=== PATIENT | female | born 1985 | race Hispanic/Latino ===

== ENCOUNTER 2017-05-31 05:09 | Emergency (ER) | payer OTHER ==
[2017-05-31 05:26] VITALS: RESP 16
--- NOTE | 2017-05-31 06:36 | ED PDOC ---
HPI: Abdomen Time Seen by Provider: 05/31/17 05:21 Chief Complaint (Nursing): Abdominal Pain Chief Complaint (Provider): Abdominal Pain History Per: Patient History/Exam Limitations: no limitations Onset/Duration Of Symptoms: Hrs (x12 hours ago) Current Symptoms Are (Timing): Still Present Location Of Pain/Discomfort: RLQ Associated Symptoms: Nausea, Vomiting. denies: Diarrhea, Constipation, Urinary Symptoms Additional Complaint(s): 31 year old female presents to ED with complaints of sharp, non-radiating RLQ pain x12 hours, is at 4 weeks , and has no history of STDs. (+) nausea and vomiting x10 episodes (non-bloody, non-bilious). (-) diarrhea, constipation, urinary symptoms, or vaginal bleeding/discharge. Patient states she has a toddler at home who she lifts up. Also reports she was seeing a fertility specialist at [facility] but notes she was able to conceive naturally for this current . OB: Dr. Baird Abnormal Vaginal Bleeding: No : 4 Para: 1 Past Medical History Reviewed: Historical Data, Nursing Documentation, Vital Signs Vital Signs: Last Vital Signs Temp 98.1 F 05/31/17 05:23 Pulse 86 05/31/17 05:23 Resp 16 05/31/17 05:23 BP 144/93 H 05/31/17 05:23 Pulse Ox 100 05/31/17 07:27 - Medical History PMH: Denies: Sexually Transmitted Disease - Family History Family History: States: Unknown Family Hx - Living Arrangements Living Arrangements: With Family - Allergies Allergies/Adverse Reactions: Allergies Allergy/AdvReac Type Severity Reaction Status Date / Time latex Allergy RASH Verified 05/31/17 05:23 Review of Systems ROS Statement: Except As Marked, All Systems Reviewed And Found Negative Gastrointestinal: Positive for: Nausea, Vomiting, Abdominal Pain. Negative for : Diarrhea, Constipation Genitourinary Female: Negative for: Dysuria, Frequency, Incontinence, Hematuria , Vaginal Discharge, Vaginal Bleeding Physical Exam - Reviewed Nursing Documentation Reviewed: Yes Vital Signs Reviewed: Yes - Physical Exam Appears: Positive for: Non-toxic, No Acute Distress Skin: Positive for: Normal Color, Warm, Dry Eye Exam: Positive for: Normal appearance Cardiovascular/Chest: Positive for: Regular Rate, Rhythm. Negative for: Murmur Respiratory: Positive for: Normal Breath Sounds. Negative for: Respiratory Distress Gastrointestinal/Abdominal: Positive for: Soft, Tenderness (RLQ/suprapubic tenderness). Negative for: Normal Exam Extremity: Positive for: Normal ROM. Negative for: Deformity Neurologic/Psych: Positive for: Alert, Oriented. Negative for: Motor/Sensory Deficits - Laboratory Results Result Diagrams: 05/31/17 06:39 05/31/17 06:39 - ECG O2 Sat by Pulse Oximetry: 100 (RA) Pulse Ox Interpretation: Normal Medical Decision Making Medical Decision Makin Initial impression: r/o ectopic v round ligament pain. less likely appendicitis Initial plan: * T&S * BETA HCG * Labs * UPreg * Reglan 10mg IVPB * UA * US OB TRANSVAGINAL * Re-eval 0700 Beta in 80s. Will require US. Patient signed over to Dr. Wheatley pending results and re-eval. Scribe Attestation: Documented by Jaclyn Trinidad acting as a scribe for Jovany Fischer MD. Scribe Attestation: All medical record entries made by the Scribe were at my direction and personally dictated by me. I have reviewed the chart and agree that the record accurately reflects my personal performance of the history, physical exam, medical decision making, and the department course for this patient. I have also personally directed, reviewed, and agree with the discharge instructions and disposition. Disposition - Clinical Impression Clinical Impression: Abdominal pain during - Patient ED Disposition Is Patient to be Admitted: Transfer of Care - Disposition Referrals: Jose Martin Baird DO [Primary Care Provider] - Disposition Time: 07:00 Condition: STABLE Forms: [employer] (Luxembourger) Patient Signed Over To: Thai Wheatley Handoff Comments: pending U/S and re-eval
[2017-05-31 06:46] LABS: BASO % 0.4 % (0.0-2.0); EOS % 0.3 % (0.0-4.0); HEMOGLOBIN 13.6 g/dL (12.0-16.0); LYMPH # 1.3 K/uL (1.0-4.3); MEAN CELL VOLUME 95.3 fl (81.0-99.0); MEAN CORPUSCULAR HEMOGLOBIN 33.7 pg (27.0-31.0); MEAN CORPUSCULAR HGB CONC 35.3 g/dL (33.0-37.0); MONO # 0.3 K/uL (0.0-0.8); MONO % 5.7 % (0.0-10.0); NEUT % 70.6 % (50.0-75.0); NRBC % 0.1 % (0.0-0.0); RBC 4.05 Mil/uL (3.80-5.20); RED CELL DISTRIBUTION WIDTH 12.6 % (11.5-14.5); WHITE BLOOD COUNT 5.7 K/uL (4.8-10.8)
[2017-05-31 06:52] LABS: SQUAMOUS EPITHIAL < 1 /hpf (0-5); URINE BACTERIA RARE (<OCC); URINE BILIRUBIN NEGATIVE (NEGATIVE); URINE BLOOD NEGATIVE (NEGATIVE); URINE CLARITY SLIGHTY-CLOUDY (Clear); URINE COLOR STRAW (YELLOW); URINE GLUCOSE (UA) NEG (Normal); URINE LEUKOCYTE ESTERASE NEG Leu/uL (Negative); URINE NITRATE NEGATIVE (NEGATIVE); URINE PROTEIN NEGATIVE (NEGATIVE); URINE UROBILINOGEN 0.2-1.0 mg/dL (0.2-1.0)
[2017-05-31 07:03] LABS: ALB/GLOB RATIO 1.3 (1.0-2.1); ALBUMIN 4.6 g/dL (3.5-5.0); ALT/SGPT 29 U/L (9-52); AST/SGOT 28 U/L (14-36); BLOOD UREA NITROGEN 7 mg/dl (7-17); CALCIUM 9.7 mg/dL (8.4-10.2); GFR AFRICAN-AMERICAN > 60; GFR NON-AFRICAN AMERICAN > 60
--- NOTE | 2017-05-31 07:27 | ED PDOC ---
- Laboratory Results Result Diagrams: 05/31/17 06:39 05/31/17 06:39 - ECG O2 Sat by Pulse Oximetry: 100 (RA) Medical Decision Making Medical Decision Making: Time: 07:00 Patient signed out to me by Dr. Fischer pending US. Time: 08:29 TRANSVAGINAL US FINDINGS: UTERUS: Uterus measures 6.1 x 6.7 x 4.7 cm. Retroverted. Normal in size and appearance. No intrauterine gestational sac. CERVIX: Long and closed. No cervical abnormality seen. RIGHT OVARY: Measures 4.5 x 3.1 x 2.2 cm. Nonspecific small echogenic structure within a possible corpus luteum. Normal flow. LEFT OVARY: Measures 2.7 x 1.6 x 1.8 cm. No solid mass. Normal flow. FREE FLUID: Moderate volume simple appearing fluid anterior and posterior to uterus as well as right adnexa. OTHER FINDINGS: None. IMPRESSION: No intrauterine gestational sac. Nonspecific small echogenic structure within a possible right ovarian corpus luteum. Findings may represent early normal/ abnormal with ectopic not excluded. Close clinical follow- up with serial pelvic sonography and serum beta HCG levels is recommended. Time: 09:50 Patient was informed of US report and that she's RH negative, but no bleeding. Advised to followup with OB-ASSOCIATE TEACHER, Dr. Baird, to rule out ectopic in 48 hrs. questions answered. Scribe Attestation: Documented by Jose Shelby, acting as a scribe for Thai Wheatley MD. Provider Scribe Attestation: All medical record entries made by the Scribe were at my direction and personally dictated by me. I have reviewed the chart and agree that the record accurately reflects my personal performance of the history, physical exam, medical decision making, and the department course for this patient. I have also personally directed, reviewed, and agree with the discharge instructions and disposition. Disposition Counseled Patient/Family Regarding: Studies Performed, Diagnosis, Need For Followup - Clinical Impression Clinical Impression: Abdominal pain during - POA Present On Arrival: None - Disposition Referrals: Jose Martin Baird DO [Primary Care Provider] - Disposition: Routine/Home Disposition Time: 09:30 Condition: IMPROVED Additional Instructions: follow up with your primary supervisor meter shop in 2 days for repeat blood work return to the ED with any worsening or concerning symptoms Instructions: Acute Pelvic Pain (DC) Forms: [employer] (Faroese)
--- NOTE | 2017-05-31 08:30 | US ---
PROCEDURE: OB Pelvic Ultrasound HISTORY: R sided abd pain, r/o ectopic LMP: 05/05/2017. Serum beta HCG 83.0 COMPARISON: None available. FINDINGS: UTERUS: Uterus measures 6.1 x 6.7 x 4.7 cm. Retroverted. Normal in size and appearance. No intrauterine gestational sac. CERVIX: Long and closed. No cervical abnormality seen. RIGHT OVARY: Measures 4.5 x 3.1 x 2.2 cm. Nonspecific small echogenic structure within a possible corpus luteum. Normal flow. LEFT OVARY: Measures 2.7 x 1.6 x 1.8 cm. No solid mass. Normal flow. FREE FLUID: Moderate volume simple appearing fluid anterior and posterior to uterus as well as right adnexa. OTHER FINDINGS: None. IMPRESSION: No intrauterine gestational sac. Nonspecific small echogenic structure within a possible right ovarian corpus luteum. Findings may represent early normal/ abnormal with ectopic not excluded. Close clinical follow-up with serial pelvic sonography and serum beta HCG levels is recommended.
[2017-05-31 10:08] VITALS: BP 119/70; PULSE 72; TEMP 97.9
[2017-05-31 10:10] VITALS: O2SAT 100
== END 2017-05-31 10:18 | disposition home or self-care (01) ==
LOC: H.ER 05:09
DX: O26.91 Pregnancy related conditions, unspecified, first trimester (principal); R10.2 Pelvic and perineal pain

== ENCOUNTER 2017-06-02 19:52 | Emergency (ER) | payer OTHER ==
[2017-06-02 21:07] VITALS: BP 153/98; PULSE 93; RESP 16; TEMP 98; O2SAT 100
--- NOTE | 2017-06-02 21:11 | ED PDOC ---
HPI: Abdomen Time Seen by Provider: 06/02/17 21:08 Chief Complaint (Nursing): Abdominal Pain Chief Complaint (Provider): abd pain History Per: Patient Additional Complaint(s): 31-year-old female currently 4 weeks presents to emergency department with right lower quadrant pain 2 days. Patient has also had diarrhea with no nausea or vomiting. No fever or chills. Patient was seen 2 days ago and ultrasound demonstrated no IUP, beta was only 83. Patient states she was seen today by her OB in [facility] and was told that ultrasound still shows no IUP. She returns to ED this evening with persistent right lower quadrant pain and diarrhea. Patient took Tylenol prior to arrival which did not help the pain. 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 PMD: in [facility] Past Medical History Reviewed: Historical Data, Nursing Documentation, Vital Signs Vital Signs: Last Vital Signs Temp 98.0 F 06/02/17 21:03 Pulse 93 H 06/02/17 21:03 Resp 16 06/02/17 21:03 BP 153/98 H 06/02/17 21:03 Pulse Ox 100 06/03/17 01:43 - Medical History PMH: No Chronic Diseases - Surgical History Surgical History: - Family History Family History: States: No Known Family Hx - Living Arrangements Living Arrangements: With Family - Social History Current smoker - smoking cessation education provided: No Alcohol: None Drugs: Denies - Allergies Allergies/Adverse Reactions: Allergies Allergy/AdvReac Type Severity Reaction Status Date / Time latex Allergy RASH Verified 06/02/17 21:03 Review of Systems ROS Statement: Except As Marked, All Systems Reviewed And Found Negative Constitutional: Negative for: Fever Cardiovascular: Negative for: Chest Pain Respiratory: Negative for: Cough Gastrointestinal: Positive for: Abdominal Pain, Diarrhea. Negative for: Nausea , Vomiting Genitourinary Female: Negative for: Dysuria Physical Exam - Reviewed Nursing Documentation Reviewed: Yes Vital Signs Reviewed: Yes - Physical Exam Appears: Positive for: Well, Non-toxic, No Acute Distress Skin: Negative for: Rash Eye Exam: Positive for: Normal appearance Cardiovascular/Chest: Positive for: Regular Rate, Rhythm Respiratory: Positive for: Normal Breath Sounds Gastrointestinal/Abdominal: Positive for: Soft, Tenderness (mild to RLQ). Negative for: Mass, Distended, Guarding, Rebound Back: Negative for: L CVA Tenderness, R CVA Tenderness Extremity: Positive for: Normal ROM Neurologic/Psych: Positive for: Alert, Oriented - Laboratory Results Result Diagrams: 06/02/17 23:22 06/02/17 23:22 Urine POC: Positive Urine dip results: Positive for: Ketones. Negative for: Leukocyte Esterase, Blood, Nitrate, Glucose, Bilirubin, Protein - ECG O2 Sat by Pulse Oximetry: 100 Pulse Ox Interpretation: Normal - Other Rad Abd US X-Ray: Read By Radiologist X-Ray Interpretation: appendix not visualized OB US X-Ray: Read By Radiologist X-Ray Interpretation: no IUP, missed AB vs early vs ectopic Medical Decision Making Medical Decision Makin31 year old female with abd pain PLan: Abd US - assess appendix OB US CBC CMP Beta Urine dip IVF Beta from 05/31/17 - 83 Beta today - 334 12:30 am: Patient aware of US results. Case was d/w Dr. Figueroa OB lease administration analyst who is aware of US and beta and results of same from 05/31/17. No intervention indicated emergently at this time as per Dr. Figueroa. 12:48 am: residential framing carpenter, Dr. Castro at bedside to evaluation patient. States patient is stable for discharge and is aware she can return to ED at any time if acutely worse. Patient agrees with plan and will return to ED if worse. Tylenol dose given prior to discharge. Disposition - Clinical Impression Clinical Impression: Abdominal pain during , Gastroenteritis - Patient ED Disposition Is Patient to be Admitted: No Counseled Patient/Family Regarding: Studies Performed, Diagnosis, Need For Followup - Disposition Referrals: [facility] [Outside] Disposition: Routine/Home Disposition Time: 01:53 Condition: STABLE Additional Instructions: TYLENOL EVERY 4-6 HRS FOR PAIN. RETURN ANY TIME IF WORSE. Instructions: Viral Gastroenteritis, Symptoms Forms: [employer] (Spanish) Results - Lab Results Lab Results: 06/02/17 06/02/17 23:22 23:22 WBC 6.5 RBC 3.91 Hgb 13.1 Hct 37.4 MCV 95.7 MCH 33.5 H MCHC 35.0 RDW 12.4 Plt Count 246 MPV 8.0 Neut % (Auto) 62.5 Lymph % (Auto) 29.0 [place] % (Auto) 7.0 Eos % (Auto) 0.9 Baso % (Auto) 0.6 Neut # (Auto) 4.1 Lymph # (Auto) 1.9 [place] # (Auto) 0.5 Eos # (Auto) 0.1 Baso # (Auto) 0.0 Sodium 140 Potassium 3.7 Chloride 105 Carbon Dioxide 22 Anion Gap 17 BUN 9 Creatinine 0.6 L Est GFR ( Amer) > 60 Est GFR (Non-Af Amer) > 60 Random Glucose 90 Calcium 9.2 Total Bilirubin 0.6 AST 17 ALT 32 Alkaline Phosphatase 38 Total Protein 7.6 Albumin 4.4 Globulin 3.2 Albumin/Globulin Ratio 1.3 Beta HCG, Quant 334.60
[2017-06-02] MEDS ORDERED: Sodium Chloride 0.9% 1,000 ML IV STA (21:50)
--- NOTE | 2017-06-02 23:18 | US ---
EXAM: US , Transvaginal CLINICAL HISTORY: 31 years old, female; Pain; Other: Abd pain; Gestational age or lmp: 05/05/17; Additional info: 4 weeks with abd pain TECHNIQUE: Real-time transvaginal obstetrical ultrasound of the maternal pelvis and a first trimester with image documentation. Transvaginal imaging was used for better evaluation of the fetus and adnexa. COMPARISON: No relevant prior studies available. FINDINGS: Gestation: No intrauterine gestational sac. Uterus/cervix: Retroverted uterus. Endometrium: 1.4 cm in thickness. Closed cervix. Ovaries: Normal ovaries. No adnexal masses. Free fluid: No significant free fluid. IMPRESSION: 1. No intrauterine gestation. DDX: Early IUP, missed , ectopic .
--- NOTE | 2017-06-02 23:19 | US ---
EXAM: US Abdomen Limited, Appendix CLINICAL HISTORY: 31 years old, female; Pain; Abdominal pain; Other: Rlq; ; Additional info: female with rlq pain TECHNIQUE: Real-time ultrasound of the right lower quadrant with image documentation. COMPARISON: No relevant prior studies available. FINDINGS: Appendix: Not visualized. Free fluid: No significant free fluid. IMPRESSION: 1. Nonvisualization of appendix.
[2017-06-02 23:25] LABS: BASO % 0.6 % (0.0-2.0); EOS # 0.1 K/uL (0.0-0.7); EOS % 0.9 % (0.0-4.0); HEMOGLOBIN 13.1 g/dL (12.0-16.0); LYMPH # 1.9 K/uL (1.0-4.3); MEAN CELL VOLUME 95.7 fl (81.0-99.0); MEAN CORPUSCULAR HEMOGLOBIN 33.5 pg (27.0-31.0); MONO # 0.5 K/uL (0.0-0.8); NEUT # 4.1 K/uL (1.8-7.0); NEUT % 62.5 % (50.0-75.0); NRBC % 0.1 % (0.0-0.0); RBC 3.91 Mil/uL (3.80-5.20); RED CELL DISTRIBUTION WIDTH 12.4 % (11.5-14.5); WHITE BLOOD COUNT 6.5 K/uL (4.8-10.8)
[2017-06-02 23:40] LABS: ALB/GLOB RATIO 1.3 (1.0-2.1); ALBUMIN 4.4 g/dL (3.5-5.0); ALT/SGPT 32 U/L (9-52); AST/SGOT 17 U/L (14-36); BLOOD UREA NITROGEN 9 mg/dl (7-17); CALCIUM 9.2 mg/dL (8.4-10.2); GFR AFRICAN-AMERICAN > 60; GFR NON-AFRICAN AMERICAN > 60
--- NOTE | 2017-06-03 01:24 | CP.PCM.CON ---
History of Present Illness - History of Present Illness History of Present Illness: General Surgery Consult Note for Dr. Ortiz This 31F with no PMH and a surgical history of a two years ago presents with two days of abdominal pain. She reports similar pain one month ago when she was diagnosed with a ruptured ovarian cyst however this time the pain is worse. She says that pain is a deep pain in her RLQ. It is worse with meals and is associated with diarrhea and increased flatus. She denies fevers chills chest pain nausea vomiting. She denies any sick contacts. PMH: None PSH: Meds: None All: NKDA Social: Denies Tobacco, ETOH ,Drugs Review of Systems - Review of Systems All systems: reviewed and no additional remarkable complaints except - Constitutional Constitutional: Chills. absent: Anorexia, Fever - Gastrointestinal Gastrointestinal: Abdominal Pain, Diarrhea. absent: Nausea, Vomiting - Genitourinary Genitourinary: absent: Dysuria Past Patient History - Past Social History Smoking Status: Never Smoked - GENITOURINARY/GYNECOLOGICAL Hx Sexually Transmitted Disorders: No - PSYCHIATRIC Hx Substance Use: No - SURGICAL HISTORY Hx Section: Yes - ANESTHESIA Hx Anesthesia: Yes Meds Allergies/Adverse Reactions: Allergies Allergy/AdvReac Type Severity Reaction Status Date / Time latex Allergy RASH Verified 06/02/17 21:03 Physical Exam - Constitutional Appears: Non-toxic, No Acute Distress - Head Exam Head Exam: ATRAUMATIC, NORMOCEPHALIC - Eye Exam Eye Exam: EOMI, Normal appearance - ENT Exam ENT Exam: Mucous Membranes Moist - Respiratory Exam Respiratory Exam: NORMAL BREATHING PATTERN - Cardiovascular Exam Cardiovascular Exam: REGULAR RHYTHM - GI/Abdominal Exam GI & Abdominal Exam: Soft, Tenderness. absent: Distended, Firm, Guarding, Rebound, Rigid - Neurological Exam Neurological exam: Alert, Oriented x3 - Psychiatric Exam Psychiatric exam: Normal Affect, Normal Mood - Skin Skin Exam: Dry, Intact Results - Vital Signs Recent Vital Signs: Last Vital Signs Temp 98.0 F 06/02/17 21:03 Pulse 93 H 06/02/17 21:03 Resp 16 06/02/17 21:03 BP 153/98 H 06/02/17 21:03 Pulse Ox 100 06/03/17 00:49 - Labs Result Diagrams: 06/02/17 23:22 06/02/17 23:22 Labs: Laboratory Results - last 24 hr 03/01/18 03/01/18 23:22 23:22 WBC 6.5 RBC 3.91 Hgb 13.1 Hct 37.4 MCV 95.7 MCH 33.5 H MCHC 35.0 RDW 12.4 Plt Count 246 MPV 8.0 Neut % (Auto) 62.5 Lymph % (Auto) 29.0 [place] % (Auto) 7.0 Eos % (Auto) 0.9 Baso % (Auto) 0.6 Neut # (Auto) 4.1 Lymph # (Auto) 1.9 [place] # (Auto) 0.5 Eos # (Auto) 0.1 Baso # (Auto) 0.0 Sodium 140 Potassium 3.7 Chloride 105 Carbon Dioxide 22 Anion Gap 17 BUN 9 Creatinine 0.6 L Est GFR ( Amer) > 60 Est GFR (Non-Af Amer) > 60 Random Glucose 90 Calcium 9.2 Total Bilirubin 0.6 AST 17 ALT 32 Alkaline Phosphatase 38 Total Protein 7.6 Albumin 4.4 Globulin 3.2 Albumin/Globulin Ratio 1.3 Beta HCG, Quant 334.60 Assessment & Plan - Assessment and Plan (Free Text) Assessment: This is a @4 weeks presenting with RL abdominal pain Abdominal U/S appendix non-visualized Transvaginal Intrauterine non visualized Evaluated by OBGYN outpatient: nothing to do Pt Currently not interested in MRI explained it would be definitive test Will discuss with Dr. Angel Castro PGY2
== END 2017-06-03 01:45 | disposition home or self-care (01) ==
LOC: H.ER 19:52
DX: O26.891 Other specified pregnancy related conditions, first trimester (principal); Z3A.01 Less than 8 weeks gestation of pregnancy; K52.9 Noninfective gastroenteritis and colitis, unspecified
CPT/HCPCS: 76705; 76817; 80053; 84702; 85025; 99283; J7040

== ENCOUNTER 2017-06-03 06:14 | Emergency (ER) | payer OTHER ==
[2017-06-03 06:30] VITALS: O2SAT 100
[2017-06-03] MEDS ORDERED: Sodium Chloride 0.9% 1,000 ML IV STA (07:19)
--- NOTE | 2017-06-03 08:01 | ED PDOC ---
HPI: Abdomen Time Seen by Provider: 06/03/17 07:07 Chief Complaint (Nursing): Abdominal Pain Chief Complaint (Provider): Abdominal Pain History Per: Patient History/Exam Limitations: no limitations Onset/Duration Of Symptoms: Worse Since Quality Of Discomfort: "Pain" Associated Symptoms: Nausea, Diarrhea. denies: Urinary Symptoms Additional Complaint(s): 31 y/o female presents to the ED complaining of abdominal pain and vomiting with associated symptoms of diarrhea and nausea worsening since onset. Patient was recently discharged a few hours ago without medication. Reports she felt bloating at home. Her abdominal ultrasound is normal and shows no appendix. Pelvis ultrasound shows no IUP. Blood work presents elevated levels of Beta- HCG. Patient is currently complaining of chest hurting with associated symptoms of dizziness and passing out; however she is standing in the room. Of note: patient is and is allergic to latex : 4 Para: 1 PMD: No Family Provider Abnormal Vaginal Bleeding: No : 4 Para: 1 Past Medical History Reviewed: Historical Data, Nursing Documentation, Vital Signs Vital Signs: Last Vital Signs Temp 98.2 F 06/03/17 06:26 Pulse 81 06/03/17 08:16 Resp 16 06/03/17 06:26 BP 155/100 H 06/03/17 06:26 Pulse Ox 100 06/03/17 08:16 - Medical History PMH: Denies: Sexually Transmitted Disease - Surgical History Surgical History: - Family History Family History: States: Unknown Family Hx - Social History Alcohol: None Drugs: Denies - Home Medications Home Medications: Ambulatory Orders Medication Instructions Recorded Famotidine [Pepcid] 20 mg PO BID #28 tab 06/03/17 Ondansetron [Zofran] 4 mg PO Q8H #9 tab 06/03/17 - Allergies Allergies/Adverse Reactions: Allergies Allergy/AdvReac Type Severity Reaction Status Date / Time latex Allergy RASH Verified 06/02/17 21:03 Review of Systems ROS Statement: Except As Marked, All Systems Reviewed And Found Negative Cardiovascular: Positive for: Chest Pain. Negative for: Other (difficulty breathing) Gastrointestinal: Positive for: Vomiting, Abdominal Pain (bloating), Diarrhea Genitourinary Female: Negative for: Dysuria, Vaginal Discharge Physical Exam - Reviewed Nursing Documentation Reviewed: Yes Vital Signs Reviewed: Yes - Physical Exam Appears: Positive for: Well, Non-toxic, No Acute Distress Head Exam: Positive for: ATRAUMATIC, NORMAL INSPECTION, NORMOCEPHALIC Skin: Positive for: Normal Color, Warm, Dry Eye Exam: Positive for: EOMI, Normal appearance, PERRL ENT: Positive for: Normal ENT Inspection Neck: Positive for: Normal, Painless ROM, Supple. Negative for: Decreased ROM Cardiovascular/Chest: Positive for: Regular Rate, Rhythm. Negative for: Murmur , Bradycardia Respiratory: Positive for: Normal Breath Sounds. Negative for: Decreased Breath Sounds, Wheezing, Respiratory Distress Gastrointestinal/Abdominal: Positive for: Soft, Tenderness (diffusely tender). Negative for: Guarding, Rebound Back: Positive for: Normal Inspection. Negative for: L CVA Tenderness, R CVA Tenderness Extremity: Positive for: Normal ROM. Negative for: Tenderness, Pedal Edema, Deformity Neurologic/Psych: Positive for: Alert, Oriented (x3), Mood/Affect (anxious) - ECG ECG: Positive for: Interpreted By Me, Viewed By Me ECG Rhythm: Positive for: Sinus Rhythm Rate: 81 O2 Sat by Pulse Oximetry: 100 (RA) Pulse Ox Interpretation: Normal - Progress Re-evaluation Time: 09:20 Condition: Re-examined, Improved Medical Decision Making Medical Decision Making: Time: 07:18 Initial Impression: Abdominal Pain, Gastroenteritis, UTI, Chest Pain Initial Plan: --EKG --Troponin I --D-Dimer [COAG] --Pepcid 20mg --Zofran 4mg --Reevaluation EKG presents sinus rhythm, normal axis, rate of 81bpm, and no acute changes. Documented by Connie Sharma acting as a scribe for Sandee Villa MD. All medical record entries made by the Scribe were at my direction and personally dictated by me. I have reviewed the chart and agree that the record accurately reflects my personal performance of the history, physical exam, medical decision making, and the department course for this patient. I have also personally directed, reviewed, and agree with the discharge instructions and disposition. 9.20a - patient is feeling better. Will discharge home with zofran and followup with PM[facility] or [facility] OB services. Disposition - Clinical Impression Clinical Impression: Abdominal pain during - Patient ED Disposition Is Patient to be Admitted: No Doctor Will See Patient In The: Office Counseled Patient/Family Regarding: Diagnosis, Need For Followup, Rx Given - Disposition Referrals: Jose Martin Baird DO [Staff Provider] - [facility] [Outside] Disposition: Routine/Home Disposition Time: 09:23 Condition: IMPROVED Prescriptions: Famotidine [Pepcid] 20 mg PO BID #28 tab Ondansetron [Zofran] 4 mg PO Q8H #9 tab Instructions: Nausea and Vomiting, Adult Forms: [employer] (Portuguese) - POA Present On Arrival: None
[2017-06-03 10:15] VITALS: BP 140/89; PULSE 68; RESP 18; TEMP 98
--- NOTE | 2017-06-03 18:02 | CARD ---
APPROVED REPORT EKG Measurement Heart [id number] <Conclusion> Normal sinus rhythm with sinus arrhythmia Normal ECG
== END 2017-06-03 10:15 | disposition home or self-care (01) ==
LOC: H.ER 06:14
DX: O26.899 Other specified pregnancy related conditions, unspecified trimester (principal); O21.9 Vomiting of pregnancy, unspecified; R42 Dizziness and giddiness
CPT/HCPCS: 84484; 85378; 93005; 96361; 96374; 99282; J2405; J7040